=== PATIENT | male | born 1985 | race Two or more races ===

== ENCOUNTER 2017-01-25 08:51 | Emergency (ER) | payer BC ==
[~2017-01-25] VITALS: Ht 160 cm; Wt 56.5 kg
[2017-01-25 10:37] LABS: HEMATOCRIT 51.5 % (38.0-50.0); MCH 29.4 PG (29.0-34.0); MCHC 33.2 G/DL (30.0-36.0); MCV 88.5 FL (86-99); MEAN PLAT.VOLUME 12.2 uM^3 (9.0-12.4); PLATELET COUNT 152 K/uL (156-360); RBC DIS.WIDTH-CV 12.1 % (11.8-14.6); RBC DIS.WIDTH-SD 39.2 % (39-53); RED BLOOD COUNT 5.82 M/uL (4.00-5.50); WHITE BLOOD COUNT 9.5 K/uL (4.1-10.2)
[2017-01-25 10:46] LABS: CHLORIDE 101 mEq/L (99-109); POTASSIUM 4.6 mEq/L (3.7-5.4); SODIUM 142 mEq/L (136-147)
[2017-01-25 10:48] LABS: GLUCOSE 81 mg/dL (70-99)
[2017-01-25 10:49] LABS: ANION GAP 16 MEQ/L (2-14)
[2017-01-25 10:52] LABS: GFR ESTIMATE (CALCULATED) > 59 mL/min/
[2017-01-25 10:53] LABS: UREA NITROGEN (BUN) 17 mg/dL (9-23)
[2017-01-25 10:54] LABS: TROP-I INTERPRETATION NEGATIVE; TROPONIN-I < 0.01 ng/mL (0.0-0.30)
[2017-01-25] MEDS ORDERED: PEPTO BISMOL240 ML PO (11:09)
[2017-01-25] MEDS ORDERED: NEURONTIN600 MG PO (11:09)
[2017-01-25] MEDS ORDERED: ASPIRIN81 M2 PO (11:09)
[2017-01-25] MEDS ORDERED: LAMICTAL XR300 MG PO (11:10)
[2017-01-25] MEDS ORDERED: DEPO-TESTOS100 MG/ML IM (11:11)
[2017-01-25] MEDS ORDERED: DULERA 100 MCG/13 GM IH (11:12)
[2017-01-25] MEDS ORDERED: PROAIR HFA8.5 GM IH ×2 (11:12→11:13)
[2017-01-25] MEDS ORDERED: DEXILANT60 MG PO (11:12)
[2017-01-25] MEDS ORDERED: ZYRTEC10 M2 PO (11:13)
[2017-01-25] MEDS ORDERED: MELATIN3 MG PO (11:13)
[2017-01-25] MEDS ORDERED: ABILIFY5 MG PO (11:14)
[2017-01-25] MEDS ORDERED: TUMS500 MG PO (11:14)
[2017-01-25 11:45] LABS: ADD MIUA? YES; BILIRUBIN NEGATIVE; BLOOD NEGATIVE; COLOR YELLOW ((YELLOW)); GLUCOSE (STRIP) NEGATIVE; KETONES 5; LEUKOCYTES NEGATIVE; NITRITE NEGATIVE; PROTEIN (STRIP) NEGATIVE; SPECIFIC GRAVITY 1.017 (1.000-1.030); UROBILINOGEN 0.2 MG/DL (0.2-1.0)
[2017-01-25 12:07] LABS: BACTERIA RARE /HPF; EPITHELIAL CELLS NONE SEEN /HPF; MUCUS TRACE /LPF
[2017-01-25 12:25] VITALS: BP 104/78
== END 2017-01-25 12:29 | disposition home or self-care (01) ==
LOC: EME 08:51
PROVIDERS: Nurse Practitioner Family
DX: R55 Syncope and collapse (principal); T43.595A Adverse effect of other antipsychotics and neuroleptics, initial encounter; Z86.73 Personal history of transient ischemic attack (TIA), and cerebral infarction without residual deficits; K21.9 Gastro-esophageal reflux disease without esophagitis; F84.0 Autistic disorder; M79.7 Fibromyalgia; Z95.2 Presence of prosthetic heart valve; Z87.891 Personal history of nicotine dependence
CPT/HCPCS: 70450; 80048; 81003; 84484; 85027; 93005; 99281; 99285